=== PATIENT | female | born 1980 | race African-American/Black ===

== ENCOUNTER 2016-09-21 12:58 | Emergency (ER) | payer OTHER ==
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
[~2016-09-21 12:58] MED LIST: AMOXICILLIN875 MG PO; ELIMITE 5% TOP; PROTONIX PO; ZOFRAN PO; ZYRTEC PO
== END 2016-09-21 15:10 | disposition home or self-care (01) ==
LOC: SED 12:58
DX: S63.502A Unspecified sprain of left wrist, initial encounter (principal); S39.012A Strain of muscle, fascia and tendon of lower back, initial encounter; F17.210 Nicotine dependence, cigarettes, uncomplicated; Z88.5 Allergy status to narcotic agent; Z88.8 Allergy status to other drugs, medicaments and biological substances; V86.69XA Passenger of other special all-terrain or other off-road motor vehicle injured in nontraffic accident, initial encounter; Y93.89 Activity, other specified; Y92.410 Unspecified street and highway as the place of occurrence of the external cause
CPT/HCPCS: 29260; 29280; 72100; 73110; 99283; 99284; J2360